=== PATIENT | male | born 1985 | race Caucasian/White ===

== ENCOUNTER 2019-01-29 16:57 | Emergency (ER) | payer OTHER, SELFPAY ==
[2019-01-29 16:58] VITALS: BP 113/70; PULSE 80; RESP 17; TEMP 36.5; O2SAT 98; BMI 19.3
--- NOTE | 2019-01-29 17:39 | ED.VIS.EYE ---
History of Present Illness Chief Complaint: Eye Problem Detail of Chief Complaint: Hydraulic fluid splashed in right eye Informant: Patient Location: Right Eye Onset: Hours, - - 3 hours Current Severity: Mild Maximum Severity: Mild Associated Symptoms - Eyes: Burning History of injury: Yes Visual correction: None Narrative: Patient states he was working on a car when hydraulic fluid splashed onto the right side of his face and got into his right eye. Injury occurred 3 hours prior to arrival. He denies vision changes. He does have light sensitivity and states his eye feels better when he is squinting. Past Medical History - Allergies and Home Meds Allergies/Adverse Reactions: Allergies codeine Allergy (Verified 01/29/19 17:01) Other Primary Care Physician: Bulmaro Callejas MD [STAFF PHYSICIAN] - 2 Days for wound check Prior records reviewed: Yes Past Medical History: None Smoking Status: Never smoker Review of Systems General: Denies: Chills, Fever Eyes: Reports: - - Right eye pain Cardiovascular: Denies: Chest pain Respiratory: Denies: Dyspnea Gastrointestinal: Denies: Abdominal pain Physical Exam Visual Acuity: Uncorrected Eyelid: Normal inspection Right Conjunctiva/Sclera: Normal inspection Left Conjunctiva/Sclera: Normal inspection Vital Signs/Narrative: Vital Signs Temp Pulse Resp BP Pulse Ox 01/29/19 16:58 97.7 F L 80 17 113/70 98 General: Well nourished, Well developed Head: Normocephalic ENT: Moist mucous membranes Cardiovascular: Regular rate, Regular rhythm Respiratory: No distress, CTA bilaterally Abdomen: Soft, Nontender Skin: Normal color Diagnostic/Tx/Re-eval - Treatment and Re-Evaluation Tetracaine: right eye - Medical Decision Making Tetracaine was applied to the right eye and significantly improved his pain. I was irrigated. Following this fluorescein is applied and eyes examined under slit lamp. He does have an area of uptake noted in the 6 o'clock position. Visual acuity is obtained and is normal. Patient was treated with gentamicin ophthalmic drops and referred to Dr. Callejas for follow-up in the next few days. Disposition: Home ED Disposition - Plan for ED Patient: Disposition: Home or Assisted Living Diagnosis: Corneal injury of right eye Instructions: Corneal Injury Referrals: Bulmaro Callejas MD [STAFF PHYSICIAN] - 2 Days for wound check
[2019-01-29] MEDS: Tetracaine 0.5% Ophthalmic Bottle 2 DRP RIGHT EYE (17:47)
[2019-01-29] MEDS: Fluorescein 1 MG STRIP 1 STRIP RIGHT EYE (19:02)
[2019-01-29] MEDS: Gentamicin Sulfate 1 OPTH.BTL 2 DRP OPHTHALMIC (19:35)
--- NOTE | 2019-01-29 19:38 | ED.RN ---
REVIEWING DISCHARGE INSTRUCTIONS AND TOLD PT TO FOLLOW UP WITH THE EYE DOCTOR IN 2 DAYS PT RESPONDED DOUBT THAT WILL HAPPEN PT THEN TOOK DISCHARGE INSTRUCTIONS AND MEDICATION AND LEFT THE ROOM.
== END 2019-01-29 19:39 | disposition home or self-care (01) ==
PROVIDERS: Emergency Provider Emergency Medicine
DX: S05.8X1A Other injuries of right eye and orbit, initial encounter (principal); X58.XXXA Exposure to other specified factors, initial encounter; Y93.9 Activity, unspecified; Y92.89 Other specified places as the place of occurrence of the external cause; Y99.8 Other external cause status
CPT/HCPCS: 99284; A4216

== ENCOUNTER 2023-02-11 12:53 | Emergency (ER) | payer OTHER, SELFPAY ==
[2023-02-11 12:54] VITALS: BP 136/93; PULSE 58; RESP 16; TEMP 36.6; O2SAT 100; BMI 18.9
[2023-02-11] MEDS: Lidocaine 1% (20 ml mdv) 20 ML Vial INFILT (13:41)
--- NOTE | 2023-02-11 13:52 | EDS_ITS ---
HPI <BRODY Gonsalez - Last Filed: 02/12/23 11:10> History of Present Illness Chief Complaint: Laceration Narrative Narrative: Patient is a 38-year-old male with no significant medical history who presents to the emergency department with a laceration to the left hand. 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 Patient has a 1.5 cm laceration in the webbing of the fingers between the thumb and the forefinger. He denies any numbness or tingling. Denies any difficulty moving his hand. He was concerned about the amount of blood and is here for evaluation. PFSH <BRODY Gonsalez - Last Filed: 02/12/23 11:10> [facility] Home Medications NK 01/29/19 [History Last Taken Unknown] Allergy/AdvReac Type Severity Reaction Status Date / Time codeine Allergy Other Verified 02/11/23 12:55 Social History Smoking Status: Never smoker ROS <BRODY Gonsalez - Last Filed: 02/12/23 11:10> ROS ED ROS Narrative Constitutional: Negative for fever, chills, weight loss, weakness Eyes: Negative for vision loss, vision change, double vision ENT: Negative for any sore throat, ear pain, congestion Cardiovascular: Negative for any chest pain, tightness, palpitations Respiratory: Negative for any cough, sputum production, hemoptysis, dyspnea, dyspnea on exertion, orthopnea Gastrointestinal: Negative for any abdominal pain, nausea, vomiting, diarrhea, constipation, blood in stool, blood in vomit : Negative for any urinary frequency, dysuria, retention, blood in urine Muscle skeletal: Negative for any muscle joint pain, stiffness, myalgias, arthralgias, neck pain, back pain Neurological: Negative for any headache, syncope, numbness or tingling, dizziness Skin: Negative for any rashes, lumps, itching, abrasions. Positive for laceration to the left hand, the webbing between the left thumb, left forefinger Psychiatric: Negative for any depression, anxiety, stress, suicidal ideation, homicidal ideation Hematologic: Negative for any easy bruising, excessive bruising, easy bleeding Allergies: Negative for any eczema, hives, rash EXAM <BRODY Gonsalez - Last Filed: 02/12/23 11:10> Physical Exam Narrative Exam Narrative: Vital signs reviewed. Extremities: No peripheral edema, no signs of gross trauma or deformity. Active full range of motion of all extremities. +2 radial pulse, patient able to open close the left hand without any difficulty. Is no neurological focal deficit. Patient has a 1.5 cm laceration in between the webbing of the first and second digit on the left hand. There is no tendon involvement, no foreign body noted. Neuro: Cranial nerves II through XII intact, no focal neurological deficits. Skin: Clean dry and intact with no rash, purpura, petechiae, vesicles or pustules. Backs/flank: No CVA tenderness, no midline spinal tenderness, no deformity. Psych: Normal mood and affect. No SI, HI or acute psychosis. Const Vital Signs: 02/11/23 12:54 02/11/23 14:04 Temperature 98 F 97.4 F L Temperature Source Temporal Pulse Rate 58 L 64 Respiratory Rate 16 14 Blood Pressure 136/93 H 134/78 H Blood Pressure Mean 107 Pulse Ox 100 99 Oxygen Delivery Method Room Air <Dr. Po Cantu DO - Last Filed: 02/28/23 17:02> Physical Exam Const Vital Signs: 02/11/23 12:54 02/11/23 14:04 Temperature 98 F 97.4 F L Temperature Source Temporal Pulse Rate 58 L 64 Respiratory Rate 16 14 Blood Pressure 136/93 H 134/78 H Blood Pressure Mean 107 Pulse Ox 100 99 Oxygen Delivery Method Room Air MDM <BRODY Gonsalez - Last Filed: 02/12/23 11:10> MDM Treatment and Re-Evaluation :: Patient appears generally well, patient appears nontoxic, vital signs are stable. Patient presents to the emergency department for complaints of a laceration between the thumb and index finger. This is roughly 1.5 cm. There is no tendon involvement, this was irrigated with 100 cc of normal saline. Patient's tetanus vaccination was up-to-date 2 to 3 years ago. Patient had no evidence of any neurological focal deficit. No tendon involvement. 3 sutures were placed. Patient will have these removed in 7 to 10 days. He instructed return for any worsening redness, fever or chills. Patient stable for discharge <Dr. Po Cantu DO - Last Filed: 02/28/23 17:02> [facility] Treatment and Re-Evaluation :: Patient appears generally well, patient appears nontoxic, vital signs are stable. Patient presents to the emergency department for complaints of a laceration between the thumb and index finger. This is roughly 1.5 cm. There is no tendon involvement, this was irrigated with 100 cc of normal saline. Patient's tetanus vaccination was up-to-date 2 to 3 years ago. Patient had no evidence of any neurological focal deficit. No tendon involvement. 3 sutures were placed. Patient will have these removed in 7 to 10 days. He instructed re turn for any worsening redness, fever or chills. Patient stable for discharge I, Dr Cantu, have reviewed the above progress note and course of action in the ER; agree with the above. I have personally seen and evaluated this patient, gone over history and physical, and discussed disposition and treatment plan with the patient. Procedures <BRODY Gonsalez - Last Filed: 02/12/23 11:10> Lacerations Left hand laceration: Length: 0.59 in Depth: Skin Prep: Sterile Conditions Laceration repair: Lidocaine Irrigated (ml): 100 Number of Sutures/Wilver: 3 Suture Information: Ethilon, Simple and 4-0 Comment: Sterile gloves, sterile drapes were used. Patient tolerated well Discharge Plan Triage Chief Complaint: Laceration ED Midlevel Provider: Hector Gruber ED Provider: Po Cantu Dx/Rx/DC Orders Instructions: ED Laceration Hand with ... Prescriptions: No Action NK Primary Care Provider: Care Physician,No Primary Referrals: Care Physician,No Primary [Primary Care Provider] - Activity Restrictions/Additional Instructions: Sutures to be removed in 7 to 10 days Disposition Disposition: Home, Self Care Discharge Date/Time: 02/11/23 14:08
[2023-02-11 14:04] VITALS: BP 134/78; PULSE 64; RESP 14; TEMP 36.3; O2SAT 99
== END 2023-02-11 14:08 | disposition home or self-care (01) ==
PROVIDERS: Emergency Provider Emergency Medicine; Visit Provider Emergency Medicine
DX: S61.412A Laceration without foreign body of left hand, initial encounter (principal); W26.8XXA Contact with other sharp object(s), not elsewhere classified, initial encounter; Y93.89 Activity, other specified; Y99.9 Unspecified external cause status; Y92.79 Other farm location as the place of occurrence of the external cause
CPT/HCPCS: 12001; 99282